=== PATIENT | male | born 1965 | race Asian ===

== ENCOUNTER 2019-01-08 13:58 | Emergency (ER) | payer OTHER ==
[~2019-01-08] VITALS: Ht 170.2 cm; Wt 71.3 kg
[2019-01-08 14:08] VITALS: Ht 170.2 cm; Wt 71.3 kg
[2019-01-08 16:09] VITALS: BP 115/76
== END 2019-01-08 16:09 | disposition home or self-care (01) ==
LOC: ED 13:58
DX: S05.01XA Injury of conjunctiva and corneal abrasion without foreign body, right eye, initial encounter (principal); X58.XXXA Exposure to other specified factors, initial encounter; Y93.89 Activity, other specified; Y92.89 Other specified places as the place of occurrence of the external cause; Y99.8 Other external cause status

== ENCOUNTER 2019-01-14 10:01 | Emergency (ER) | payer OTHER ==
[~2019-01-14] VITALS: Ht 170.2 cm; Wt 71.3 kg
[2019-01-14 10:05] VITALS: BP 117/72; Ht 170.2 cm; Wt 71.3 kg
== END 2019-01-14 11:11 | disposition home or self-care (01) ==
LOC: ED 10:01
DX: H16.001 Unspecified corneal ulcer, right eye (principal)